=== PATIENT | male | born 1950 | race African-American/Black ===

== ENCOUNTER 2019-10-16 08:20 | Observation (INO) ==
--- NOTE | 2019-10-16 09:44 | DR.GENAD ---
HPI Time Seen Time Seen by Provider: 10/16/19 09:12 PCP Primary Care Physician: Toni OROPEZA Comment HPI Comment: HISTORY BELOW. HISTORY HTN AND DM AND COPD. LOWER ABCK AND LOWER EXTREMITIES PAIN, 09/27. DENIES CONTACT WITH COVID 19 PATIENT. HAVING DIARRHEA SINCE LAST NIGHT. Complaint/Symptoms Chief Complaint Doctors Comments: INCREASING SOB, WEAKNESS AND CHEST PAIN. BP ELEVATED IN ER. HISTORY HYPERTENSION. HAVE TAKEN HIS USUAL MORNING MEDICATIONS. CONCERN HE MAY HAVE COVID 19 INFECTION. Chief Complaint:: Patient states "I think I'm having symptoms of Covid." Patient denies any fever or sore throat. States that he is short of breath but that he has COPD and that it is not any worse than normal. He does report some chest pain but that it is "not bad". Denies any exposure to COVID. Patient reports symptoms of increased blood pressure. States that his blood pressure was 200/76. States that he is having tingling and cramps in his legs and that he started having diarrhea last night. He also reports lower back pain and feet pain that has been going on for awhile. COVID-19 Coronavirus risk:travel/contact w/high risk person: No Has patient experienced Coronavirus symptoms: Yes Coronavirus symptoms experienced: Fever and Shortness of Breath Source History Provided: Patient Mode of Arrival Mode of Arrival: Ambulatory Timing Onset of Chief Complaint: 10/15/19 Came on: Suddenly Duration Duration: Constant Duration: Days Severity Severity: Moderate Modifying Factors Worsens:: MOVEMENT Improves:: REST. Associated Signs and Symptoms Associated Signs and Symptoms: WEAKNESS. Other History Other History: COPD, HTN, DM. PMH PMH Past Medical History: Yes Past Medical History: COPD, Diabetes and Hypertension Past Surgical History: Yes Surgical History: Appendectomy and Other Family History History of Family Medical Conditions: Yes Family Medical History: Diabetes Mellitus and Cancer Social History Does any household member use tobacco: No Alcohol Use: None Do you use any recreational Drugs:: No Lives With: Alone Lives Where: Home Travel Risk Coronavirus risk:travel/contact w/high risk person: No Has patient experienced Coronavirus symptoms: Yes Coronavirus symptoms experienced: Fever and Shortness of Breath Infectious screening In the last 2 months have you had wt loss of >10#?: NO Have you had fever, night sweats or hemotysis?: No Have you traveled outside the country in the last 6 months?: No Isolation: Droplet ROS Review of Systems Constitutional: See HPI, Weakness and Fatigue; negative Fever Eyes: No Symptoms Reported and See HPI; negative Blurred Vision and Diplopia ENTM: No Symptoms Reported and See HPI; negative Ear Pain, Nose Discharge, Nose Congestion and Throat Pain Respiratoy: See HPI, Moist Cough and Short of Breath; negative Orthopnea Cardiovascular: See HPI and Chest Pain; negative Edema and Palpitations Gastrointestinal/Abdominal: See HPI and Diarrhea; negative Abdominal Pain and Vomiting Genitourinary: No Symptoms Reported and See HPI; negative Dysuria, Frequency and Hematuria Neurological: See HPI and Weakness; negative Headache and Dizziness Musculoskeletal: See HPI and Back Pain; negative Muscle Pain Integumentary: No Symptoms Reported and See HPI; negative Change in Color, Rash and Juandice Hematologic/Lymphatic: No Symptoms Reported and See HPI; negative Easy Bruising and Swollen Glands Endocrine: No Symptoms Reported and See HPI; negative Increased Thirst and Increased Urine Psychiatric: No Symptoms Reported and See HPI All Other Systems: Reviewed and Negative PE Vital Signs Vitals: Temperature 97.1 F Pulse Rate [Left Brachial] 96 Pulse Rate 65 Respiratory Rate 20 Blood Pressure [Left Arm] 177/77 Blood Pressure 167/76 O2 Sat by Pulse Oximetry 100 General Limitations: No Limitations General Appearance: Alert and In Distress Head Head Exam: Normal Inspection and Atraumatic Eyes Eye exam: Normal Appearance and PERRL; negative Scleral Icterus and Conjunctival Injection ENT ENT Exam: Normal Exam and Normal Oropharynx External Ear Exam: Normal External Inspection; negative Mastoid Tenderness TM/Canal Exam: Bilateral: Normal Nose Exam: Normal Nose Exam Mouth Exam: negative Normal Inspection Throat Exam: Normal Inspection; negative Tonsillar Erythema, Tonsillomegaly and Tonsillar Exudate Neck Neck Exam: Normal Inspection and Trachea Midline; negative Tenderness and Lymphadenopathy Chest Chest Inspection: Normal Inspection and Symmetric Chest Wall Rise; negative Tenderness Respiratory Respiratory Exam: Respiratory Distress; negative Accessory Muscle Use and Chest Wall Tenderness Respiratory Exam: Bilateral: Rhonchi and Lower: Rhonchi Cardiovascular Cardiovascular Exam: Regular Rate, Normal Rhythm and Normal Heart Sounds; negative Systolic Murmur and Diastolic Murmur Abdominal Exam Abdominal Exam: Normal Inspection, Normal Bowel Sounds and Soft; negative Tenderness Extremities Extremities Exam: Normal Inspection, Full ROM and Normal Capillary Refill; negative Tenderness, Edema and Calf Tenderness Back Back Exam: Normal Inspection; negative (R) CVA Tenderness and (L) CVA Tenderness Neurologic Neurological Exam: Alert and Oriented X3; negative Motor Sensory Deficit Psychiatric Psychiatric Exam: Normal Affect and Normal Mood Skin Skin Exam: Warm, Dry, Intact and Normal Color MDM Differential Diagnosis Differential Diagnosis: PNEUMONIA, CHF, HTN, GENERALIZED WEAKNESS, UTI. COURSE Treatment Treatment: SEE ORDERS. Consultation Consultation Comments: DISCUSSED PATIENT WITH DR. JOEL, HE WILL ADMIT PATIENT. Education/Counseling Education/Counseling: Patient Educated On: Diagnosis ROR Labs Reviewed Laboratory Results Reviewed?: Yes Result Diagrams: 10/18/19 04:45 10/18/19 04:45 Laboratory: WBC 9.8 X10^3/uL (3.6-10.0) 10/16/19 10:00 RBC 3.74 X10^6/uL (4.7-6.0) L 10/16/19 10:00 Hgb 11.0 g/dL (13.5-18.0) L 10/16/19 10:00 Hct 34.6 % (42.0-54.0) L 10/16/19 10:00 MCV 92.3 fL (80.0-100.0) 10/16/19 10:00 MCH 29.5 pg (27.0-34.0) 10/16/19 10:00 MCHC 31.9 g/dL (33.0-35.0) L 10/16/19 10:00 RDW 14.9 % (11.6-16.5) 10/16/19 10:00 Plt Count 104 X10^3/uL (150.0-450.0) L 10/16/19 10:00 Plt Count Comment Decreased (ADEQUATE) 10/16/19 10:00 MPV 12.2 fL (7.4-11.0) H 10/16/19 10:00 Neut % (Auto) 92.8 % (42.0-75.0) H 10/16/19 10:00 Lymph % (Auto) 5.7 % (21.0-51.0) L 10/16/19 10:00 Sharp % (Auto) 1.3 % (0.0-13.0) 10/16/19 10:00 Eos % (Auto) 0.0 % (0.9-2.9) L 10/16/19 10:00 Baso % (Auto) 0.2 % (0.2-1.0) 10/16/19 10:00 Neut # (Auto) 9.1 x10^3/uL (2.2-4.8) H 10/16/19 10:00 Lymph # (Auto) 0.6 X10^3/uL (1.3-2.9) L 10/16/19 10:00 Sharp # (Auto) 0.1 x10^3/uL (0.3-0.8) L 10/16/19 10:00 Eos # (Auto) 0.0 x10^3/uL (0.0-0.2) 10/16/19 10:00 Baso # (Auto) 0.0 X10^3/uL (0.0-0.1) 10/16/19 10:00 Absolute Nucleated RBC 0.1 /100WBC 10/16/19 10:00 Total Counted 100 10/16/19 10:00 Neutrophils % (Manual) 90 % (39-76) H 10/16/19 10:00 Band Neutrophils % 2 % (0-10) 10/16/19 10:00 Lymphocytes % (Manual) 8 % (13-43) L 10/16/19 10:00 Plt Morphology Comment Normal (NORMAL) 10/16/19 10:00 RBC Morphology Normal (NORMAL) 10/16/19 10:00 Sodium 136 mmol/L (136-145) 10/16/19 10:00 Corrected Sodium 137 mmol/L (136-145) 10/16/19 10:00 Potassium 4.4 mmol/L (3.5-5.1) 10/16/19 10:00 Chloride 99 mmol/L (98-107) 10/16/19 10:00 Carbon Dioxide 29.9 mmol/L (21-32) 10/16/19 10:00 BUN 64 mg/dL (7-18) H 10/16/19 10:00 Creatinine 2.02 mg/dL (0.70-1.30) H 10/16/19 10:00 Est GFR (MDRD) Af Amer 42 (>60) L 10/16/19 10:00 Est GFR (MDRD) Non-Af 35 (>60) L 10/16/19 10:00 Glucose 156 mg/dL (65-99) H 10/16/19 10:00 Calcium 9.5 mg/dL (8.5-10.1) 10/16/19 10:00 Corrected Calcium TNP 10/16/19 10:00 Ferritin 33 ng/mL (26-388) 10/16/19 10:00 Total Bilirubin 0.20 mg/dL (0.2-1.0) 10/16/19 10:00 AST 20 Units/L (15-37) 10/16/19 10:00 ALT 22 Units/L (12-78) 10/16/19 10:00 Alkaline Phosphatase 56 Units/L (46-116) 10/16/19 10:00 Lactate Dehydrogenase 204 Units/L (85-227) 10/16/19 10:00 C-Reactive Protein 5.50 mg/L (0-3.0) H 10/16/19 10:00 Total Protein 8.1 g/dL (6.4-8.2) 10/16/19 10:00 Albumin 4.2 g/dL (3.4-5.0) 10/16/19 10:00 Globulin 3.9 g/dL (2.5-4.5) 10/16/19 10:00 Albumin/Globulin Ratio 1.1 Ratio (1.1-2.1) 10/16/19 10:00 Specimen Type Random urine 10/16/19 10:49 Urine Color Pale yellow (YELLOW) 10/16/19 10:49 Urine Appearance Clear (CLEAR) 10/16/19 10:49 Urine pH 5.0 (5.0 - 8.0) 10/16/19 10:49 Ur Specific [place] 1.015 (1.000-1.030) 10/16/19 10:49 Urine Protein Negative (NEGATIVE) 10/16/19 10:49 Urine Glucose (UA) Negative (NEGATIVE) 10/16/19 10:49 Urine Ketones Negative (NEGATIVE) 10/16/19 10:49 Urine Occult Blood Negative (NEGATIVE) 10/16/19 10:49 Urine Nitrite Negative (NEGATIVE) 10/16/19 10:49 Urine Bilirubin Negative (NEGATIVE) 10/16/19 10:49 Urine Urobilinogen Normal (NORMAL) 10/16/19 10:49 Ur Leukocyte Esterase Negative (NEGATIVE) 10/16/19 10:49 RSV Nasal Swab Negative (NEGATIVE) 10/16/19 09:35 Influenza Type A Ag Negative-presumptive (NEGATIVE) 10/16/19 09:35 Influenza Type B Ag Negative-presumptive (NEGATIVE) 10/16/19 09:35 SARS-CoV-2 (PCR) Negative (NEGATIVE) 10/16/19 13:16 S. pyogenes (TEM-PCR) Not detected (NOT DETECT) 10/16/19 09:37 Other Results Comments: IMPRESSION Bilateral lung infiltrates could be due to atypical pneumonia but consideration should be given to pulmonary edema, also. Borderline CHF changes are seen. 1.3 cm left upper lobe lung nodule. Follow-up CT may be useful if this persists on follow-up chest x-rays. Mild constipation. XRAY XRAY Interpreted by: Radiologist (REPORT DISCUSSED WITH YOUR PATIENT.) and Self EKG Rate: 61 [place]: Normal Rhythm: NSR Block: None Hypertrophy: LVH ST: Inf, Lat, Ischemia and Infarct Opioid Opioid Risk Tool Age (Duran box if 16-45): No History of Preadolescent Sexual Abuse: No Total: 0 Total Score Risk Category: Low Risk Copyright: [facility] predicting aberrant behaviors Diagnosis Discharge Problem: Generalized weakness, History of renal insufficiency Pneumonia Qualifiers: Pneumonia type: due to unspecified organism Laterality: bilateral Lung location: lower lobe of lung Qualified Code(s): J18.9 - Pneumonia, unspecified organism Hypertension Qualifiers: Hypertension type: essential hypertension Qualified Code(s): I10 - Essential (primary) hypertension Dyspnea Qualifiers: Dyspnea type: dyspnea on exertion Qualified Code(s): R06.00 - Dyspnea, unspecified Instructions Instructions: Type 2 Diabetes Mellitus, Self Care, Adult, [id number] Chronic Obstructive Pulmonary Disease Exacerbation, [id number] Droplet Precautions, [id number] Hypertension, Ayrs-hp-Pebi Viral Respiratory Infection Community-Acquired Pneumonia, Adult Forms: Excuse From Work Precautions for COVID19 Patient Portal Social Distancing
[2019-10-16 10:07] LABS: RSV AG DETECTION NEGATIVE (NEGATIVE)
[2019-10-16 10:14] LABS: BASOPHILS % (AUTO) 0.2 % (0.2-1.0); HEMATOCRIT 34.6 % (42.0-54.0); LYMPHOCYTES # (AUTO) 0.6 X10^3/uL (1.3-2.9); LYMPHOCYTES % (AUTO) 5.7 % (21.0-51.0); MEAN CORPUSCULAR HEMOGLOBIN 29.5 pg (27.0-34.0); MEAN CORPUSCULAR HGB CONC 31.9 g/dL (33.0-35.0); MEAN CORPUSCULAR VOLUME 92.3 fL (80.0-100.0); MEAN PLATELET VOLUME 12.2 fL (7.4-11.0); MONOCYTES # (AUTO) 0.1 x10^3/uL (0.3-0.8); MONOCYTES % (AUTO) 1.3 % (0.0-13.0); NEUTROPHILS # (AUTO) 9.1 x10^3/uL (2.2-4.8); NEUTROPHILS % (AUTO) 92.8 % (42.0-75.0); PLATELET COUNT 104 X10^3/uL (150.0-450.0); RED BLOOD COUNT 3.74 X10^6/uL (4.7-6.0); RED CELL DISTRIBUTION WIDTH 14.9 % (11.6-16.5); WHITE BLOOD COUNT 9.8 X10^3/uL (3.6-10.0)
[2019-10-16 10:22] LABS: ALANINE AMINOTRANSFERASE 22 Units/L (12-78); ALBUMIN 4.2 g/dL (3.4-5.0); ALKALINE PHOSPHATASE 56 Units/L (46-116); ASPARTATE AMINO TRANSFERASE 20 Units/L (15-37); BLOOD UREA NITROGEN 64 mg/dL (7-18); CALCIUM 9.5 mg/dL (8.5-10.1); CARBON DIOXIDE 29.9 mmol/L (21-32); CHLORIDE 99 mmol/L (98-107); COR NA(FOR HYPERGLY) 137 mmol/L (136-145); CREATININE 2.02 mg/dL (0.70-1.30); LACTATE DEHYDROGENASE 204 Units/L (85-227); SODIUM 136 mmol/L (136-145); TOTAL PROTEIN 8.1 g/dL (6.4-8.2); eGFR NON BLACK RACES 35 (>60)
[2019-10-16 10:27] LABS: BAND NEUTROPHILS % 2 % (0-10); PLATELET MORPHOLOGY COMMENT NORMAL (NORMAL)
[2019-10-16 10:57] LABS: BILIRUBIN,URINE NEGATIVE (NEGATIVE); BLOOD/HEMOGLOBIN,URINE NEGATIVE (NEGATIVE); GLUCOSE, URINE NEGATIVE (NEGATIVE); KETONES,URINE NEGATIVE (NEGATIVE); LEUKOCYTE ESTERASE ,URINE NEGATIVE (NEGATIVE); NITRITES,URINE NEGATIVE (NEGATIVE); PROTEIN,URINE NEGATIVE (NEGATIVE); UROBILINOGEN,URINE NORMAL (NORMAL)
[2019-10-16 11:06] LABS: APPEARANCE,URINE CLEAR (CLEAR); COLOR,URINE PALE YELLOW (YELLOW)
[2019-10-16] MEDS ORDERED: CATAPRES TAB 0.1 MG ONE (13:07)
[2019-10-16] MEDS ORDERED: CATAPRES TAB 0.1 MG PO ONE (13:08)
--- NOTE | 2019-10-16 13:12 | RAD ---
HISTORYchest pain/ diarrhea, pt thinks he may have covidSTUDYACUTE ABDOMEN x-ray SERIES, one view chest and two view abdomenCOMPARISONNoneFINDINGSBilateral lung infiltrates are seen which could be due to atypical pneumonia. Pulmonary vasculature appears mildly prominent and heart is borderline enlarged. Pulmonary densities could possibly be pulmonary edema. In the left upper lobe there is a rounded density that is suspicious for a nodule measuring 1.3 cm. No pneumothorax or pleural effusion is seen.No free intraperitoneal air is seen. Mild right-sided constipation is seen. Mild vascular calcifications are seen in the pelvis.IMPRESSIONBilateral lung infiltrates could be due to atypical pneumonia but consideration should be given to pulmonary edema, also. Borderline CHF changes are seen.1.3 cm left upper lobe lung nodule. Follow-up CT may be useful if this persists on follow-up chest x-rays.Mild constipation.Electronically signed by: Yimi Dominguez (Oct 16, 2019 13:10:48)
[2019-10-16] MEDS ORDERED: ZOSYN VIAL 3.375 GRAMS IV ONE (13:59)
[2019-10-16] MEDS ORDERED: NS 1000 ML 1,000 ML ONE (14:00)
[2019-10-16] MEDS ORDERED: NS 100 ML IV 100 ML IV ONE (14:00)
[2019-10-16] MEDS ORDERED: ZOSYN VIAL 3.375 GRAMS 3.375 G in NS 100 ML IV + SPIKE MINIBAG* 100 ML IV SCH (14:42)
[2019-10-16] MEDS ORDERED: TUSSIONEX PENNKINETIC SUSP PO PRN (16:08)
[2019-10-16] MEDS ORDERED: PROVENTIL NEB TX 0.083% 2.5MG/ 3ML NEB PRN (16:17)
[2019-10-16 17:44] LABS: CKMB % 1.3 % (<4); CREATINE KINASE 87 Units/L (39-308); CREATINE KINASE MB 1.1 ng/mL (0-4.0); TROPONIN I < 0.02 ng/mL (0-1.5)
[2019-10-16] MEDS ORDERED: NS 250 ML IV 250 ML IV ONE (18:26)
[2019-10-16] MEDS ORDERED: ZITHROMAX INJ 500 MG VIAL IV ONE (18:27)
[2019-10-16] MEDS: ZITHROMAX INJ 500 MG VIAL 500 MG in NS 250 ML IV 250 ML IV SCH (18:30)
[2019-10-16 18:45] VITALS: BMI 28.0
[2019-10-16] MEDS ORDERED: NS 500 ML IV 500 ML IV PRN (18:53)
[2019-10-16] MEDS: ROBITUSSIN DM PO SCH ×2 (18:57→21:20)
[2019-10-16] MEDS: PULMICORT NEB TX 0.5 MG NEB SCH ×2 (21:00→23:48)
[2019-10-16] MEDS ORDERED: REFLEX: PROVENTIL NEB & PulmiCORT NEB~ NEB SCH (21:00)
[2019-10-16] MEDS ORDERED: NS 100 ML IV + SPIKE MINIBAG* 100 ML IV ONE (21:17)
[2019-10-16] MEDS: HumuLIN R SC PRN (21:20)
[2019-10-16] MEDS: ZOSYN VIAL 3.375 GRAMS 3.375 G in NS 100 ML IV 100 ML IV SCH (21:21)
[2019-10-16] MEDS: PROVENTIL NEB TX 0.083% 2.5MG/ 3ML NEB SCH (23:47)
[2019-10-17] MEDS ORDERED: NS 100 ML IV + SPIKE MINIBAG* 100 ML IV ONE (04:04)
[2019-10-17] MEDS: ZOSYN VIAL 3.375 GRAMS 3.375 G in NS 100 ML IV 100 ML IV SCH ×3 (05:06→21:45)
[2019-10-17 05:21] LABS: BASOPHILS % (AUTO) 0.2 % (0.2-1.0); EOSINOPHILS % (AUTO) 0.1 % (0.9-2.9); HEMATOCRIT 36.4 % (42.0-54.0); HEMOGLOBIN 11.5 g/dL (13.5-18.0); LYMPHOCYTES % (AUTO) 16.6 % (21.0-51.0); MEAN CORPUSCULAR HEMOGLOBIN 29.2 pg (27.0-34.0); MEAN CORPUSCULAR HGB CONC 31.7 g/dL (33.0-35.0); MEAN CORPUSCULAR VOLUME 92.1 fL (80.0-100.0); MEAN PLATELET VOLUME 12.2 fL (7.4-11.0); MONOCYTES # (AUTO) 0.8 x10^3/uL (0.3-0.8); MONOCYTES % (AUTO) 6.7 % (0.0-13.0); NEUTROPHILS # (AUTO) 9.2 x10^3/uL (2.2-4.8); NEUTROPHILS % (AUTO) 76.4 % (42.0-75.0); PLATELET COUNT 105 X10^3/uL (150.0-450.0); RED BLOOD COUNT 3.95 X10^6/uL (4.7-6.0); RED CELL DISTRIBUTION WIDTH 15.1 % (11.6-16.5); WHITE BLOOD COUNT 12.1 X10^3/uL (3.6-10.0)
[2019-10-17 05:45] LABS: ALANINE AMINOTRANSFERASE 23 Units/L (12-78); ALBUMIN 3.8 g/dL (3.4-5.0); ALKALINE PHOSPHATASE 55 Units/L (46-116); ASPARTATE AMINO TRANSFERASE 17 Units/L (15-37); BLOOD UREA NITROGEN 46 mg/dL (7-18); CALCIUM 9.4 mg/dL (8.5-10.1); CARBON DIOXIDE 28.7 mmol/L (21-32); CHLORIDE 104 mmol/L (98-107); CREATININE 1.51 mg/dL (0.70-1.30); SODIUM 141 mmol/L (136-145); TOTAL PROTEIN 7.6 g/dL (6.4-8.2); eGFR NON BLACK RACES 49 (>60)
[2019-10-17] MEDS: ROBITUSSIN DM PO SCH ×4 (08:57→21:45)
[2019-10-17] MEDS: VSL#3 PO SCH (08:57)
[2019-10-17] MEDS ORDERED: PRAVACHOL PO SCH (09:00)
[2019-10-17] MEDS: PROVENTIL NEB TX 0.083% 2.5MG/ 3ML NEB SCH ×2 (09:17→21:30)
[2019-10-17] MEDS: PULMICORT NEB TX 0.5 MG NEB SCH ×2 (09:17→21:30)
[2019-10-17] MEDS: ZITHROMAX INJ 500 MG VIAL 500 MG in NS 250 ML IV 250 ML IV SCH (10:00)
[2019-10-17] MEDS: APRESOLINE TAB 25 MG PO SCH ×2 (10:15→21:44)
[2019-10-17] MEDS: ISOSORBIDE MONONITRATE ER 24-HR PO SCH (10:15)
[2019-10-17] MEDS: PLAVIX PO SCH (10:15)
[2019-10-17] MEDS: LIPITOR TAB 40 MG PO SCH (11:15)
[2019-10-17] MEDS: LOVENOX INJ 40 MG SYR SC SCH (14:30)
[2019-10-17] MEDS: LASIX IVP SCH ×2 (15:00→17:48)
--- NOTE | 2019-10-17 17:36 | DR.H&P ---
H&P - History & Physical for Day of: H&P Date: 10/16/19 - Chief Complaint Chief Complaint: CHEST PRESSURE, SOB, CCC, DIARRHEA - History of Present Illness History of Present Illness: PT IS 68 BM ER ADMISSION AFTER PRESENTING WITH CO CCC, SOB, CHEST PRESSURE AND DIARRHEA. PT CONCERNED THAT HE HAS COVID 19. PT HAS PMH CRF, CHF, DM, RLS, OA, COPD. PT CXR IN ER REVEALING PNEUMONIA. PT RAPID COVID IN ER -. PT ADMITTED FOR TREATMENT AND EVALUATION OF ACUTE ILLNESS. - Past Medical History Past Medical History: Arthritis, CHF, COPD, Diabetes, GERD, Hypertension - Past Surgical History Surgical History: Appendectomy - Family History Family Medical History: Diabetes Mellitus, Coronary Artery Disease, Hypertension - Social History Does patient currently use any type of tobacco product: No Have you used tobacco products in the last 12 months: No Type of Tobacco Use: None Does any household member use tobacco: No Alcohol Use: None Drug Use: None Prescription drug monitoring program results: PDMP reviewed and no concerns identified - Medications Home Medications: amlodipine Allergy (Verified 10/17/19 10:10) CONTINUE taking the following medications acetaminophen [Tylenol Extra Strength] 500 mg PO HS 10/16/19 [History] albuterol sulfate 90 puff INHALATION DAILY PRN 10/16/19 [History] aspirin 81 mg PO PRN PRN 10/16/19 [History] atorvastatin 40 mg PO DAILY 10/16/19 [History] clopidogrel 75 mg PO DAILY 10/16/19 [History] furosemide 40 mg PO BID 10/16/19 [History] hydralazine 100 mg PO BID 10/16/19 [History] insulin glargine [Lantus U-100 Insulin] 30 unit SUBCUT HS 10/16/19 [History] insulin regular human [Humulin R Regular U-100 Insuln] 2 sliding scale dose SUBCUT PRN PRN 10/16/19 [History] isosorbide mononitrate 60 mg PO DAILY 10/16/19 [History] montelukast 10 mg PO DAILY 10/16/19 [History] nitroglycerin 0.4 mg SUBLINGUAL PRN PRN 10/16/19 [History] pravastatin 20 mg PO DAILY 10/16/19 [History] prednisone 50 mg PO DAILY 10/16/19 [History] pyridoxine (vitamin B6) [Vitamin B-6] 50 mg PO DAILY 10/16/19 [History] torsemide 20 mg PO DAILY 10/16/19 [History] - Review of Systems Constitutional: Fever, Chills, Weakness Eyes: No Symptoms Reported ENT: No Symptoms Reported Respiratory: Cough, Shortness of Breath, SOB with Excertion, Wheezing Cardiovascular: Chest Pain ("PRESSURE" "FULLNESS") Gastrointestinal: Nausea, Diarrhea Genitourinary: No Symptoms Reported Musculoskeletal: No Symptoms Reported Skin: No Symptoms Reported Neurological: No Symptoms Reported - Physical Exam Vital Signs: Temperature 97.8 F Pulse Rate [Left Brachial] 60 Pulse Rate 75 Respiratory Rate 23 Blood Pressure [Right Arm] 184/75 Blood Pressure [Left Arm] 177/77 Blood Pressure 158/73 O2 Sat by Pulse Oximetry 100 Oriented: Normal Eyes: Normal Ear: Normal Nose: Normal Throat: Normal Respiratory: RLL Diminished, LLL Diminished Cardiovascular: Normal. negative: Murmur : Normal Auscultation: Bowel Sounds: Normal Palpation: Normal Tenderness: Normal Skin: Decreased Turgur Musculoskeletal: Back:Thoracic, Back:Lumbar Mood Description: Calm Speech Pattern: Clear, Appropriate - Assessment/Plan (1) SOB (shortness of breath) Status: Acute Plan: ADMIT, PNEUMONIA PROTOCOL. ISOLATION, SEND OUT COVID19. CXR ON ADMISSION, STRICT I&OS, BP CONTROL. SERIAL CE AND EKG, SSI, BS CONTROL. VERIFY HOME MEDICATION, IV ATBX THERAPY, RESP CONSULT. SPUTUM CULTURE ON ADMISSION. (2) COPD (chronic obstructive pulmonary disease) Status: Acute (3) CRF (chronic renal failure) Status: Acute (4) Hypertension Status: Acute (5) Pneumonia Status: Acute (6) Diabetes Status: Acute - Allergies Allergies/Adverse Reactions: Allergies Allergy/AdvReac Type Severity Reaction Status Date / Time amlodipine Allergy Verified 10/17/19 10:10
[2019-10-17] MEDS: HumuLIN R SC PRN (17:40)
[2019-10-17 19:09] LABS: CREATINE KINASE 50 Units/L (39-308); CREATINE KINASE MB < 1.0 ng/mL (0-4.0); TROPONIN I < 0.02 ng/mL (0-1.5)
[2019-10-17] MEDS: MIRAPEX TAB 0.25 MG PO SCH (21:45)
[2019-10-18 01:27] LABS: CKMB % 2.3 % (<4); CREATINE KINASE 44 Units/L (39-308); CREATINE KINASE MB < 1.0 ng/mL (0-4.0); TROPONIN I < 0.02 ng/mL (0-1.5)
[2019-10-18 05:13] LABS: BASOPHILS % (AUTO) 0.2 % (0.2-1.0); EOSINOPHILS # (AUTO) 0.1 x10^3/uL (0.0-0.2); EOSINOPHILS % (AUTO) 0.7 % (0.9-2.9); HEMATOCRIT 34.6 % (42.0-54.0); LYMPHOCYTES # (AUTO) 1.9 X10^3/uL (1.3-2.9); LYMPHOCYTES % (AUTO) 22.1 % (21.0-51.0); MEAN CORPUSCULAR HEMOGLOBIN 29.5 pg (27.0-34.0); MEAN CORPUSCULAR HGB CONC 31.9 g/dL (33.0-35.0); MEAN CORPUSCULAR VOLUME 92.6 fL (80.0-100.0); MEAN PLATELET VOLUME 11.9 fL (7.4-11.0); MONOCYTES # (AUTO) 0.7 x10^3/uL (0.3-0.8); MONOCYTES % (AUTO) 8.2 % (0.0-13.0); NEUTROPHILS # (AUTO) 5.9 x10^3/uL (2.2-4.8); NEUTROPHILS % (AUTO) 68.8 % (42.0-75.0); PLATELET COUNT 95 X10^3/uL (150.0-450.0); RED BLOOD COUNT 3.74 X10^6/uL (4.7-6.0); RED CELL DISTRIBUTION WIDTH 14.9 % (11.6-16.5); WHITE BLOOD COUNT 8.5 X10^3/uL (3.6-10.0)
[2019-10-18] MEDS: ZOSYN VIAL 3.375 GRAMS 3.375 G in NS 100 ML IV 100 ML IV SCH ×3 (05:27→21:20)
[2019-10-18 05:37] LABS: ALANINE AMINOTRANSFERASE 25 Units/L (12-78); ALBUMIN 3.4 g/dL (3.4-5.0); ALKALINE PHOSPHATASE 46 Units/L (46-116); ASPARTATE AMINO TRANSFERASE 22 Units/L (15-37); BLOOD UREA NITROGEN 32 mg/dL (7-18); CALCIUM 8.8 mg/dL (8.5-10.1); CARBON DIOXIDE 34.1 mmol/L (21-32); CHLORIDE 103 mmol/L (98-107); COR NA(FOR HYPERGLY) 143 mmol/L (136-145); CREATININE 1.65 mg/dL (0.70-1.30); SODIUM 141 mmol/L (136-145); TOTAL PROTEIN 6.9 g/dL (6.4-8.2); eGFR NON BLACK RACES 44 (>60)
[2019-10-18] MEDS: APRESOLINE TAB 25 MG PO SCH ×2 (07:12→21:19)
--- NOTE | 2019-10-18 07:41 | RAD ---
HISTORYFollow-up pneumoniaSTUDYChest AP [id number] heart is mildly enlarged. No congestive heart failure is noted. Extensive pleural calcifications are present on the right. No definite right lung infiltrates are identified. Extensive pleural calcifications are present on the left. Increased density in the left lung base may be due to overlying pleural calcifications. The upper lung field is clear. The nodular density described on the prior chest x-ray in the left lung is not definitely visualized. Chest CT with contrast may be of further diagnostic value in evaluating the lung cancino particularly the left lung base.IMPRESSIONExtensive pleural calcification possibly accounting for the appearance of infiltrates on the prior examination.Left lung nodule described on the prior examination not definitely identifiedMild cardiomegaly without congestive heart failureElectronically signed by: AVTAR GAITAN (Oct 18, 2019 07:40:33)
[2019-10-18] MEDS: PULMICORT NEB TX 0.5 MG NEB SCH ×2 (08:10→21:30)
[2019-10-18] MEDS: PROVENTIL NEB TX 0.083% 2.5MG/ 3ML NEB SCH ×2 (08:10→21:30)
[2019-10-18] MEDS: LIPITOR TAB 40 MG PO SCH (08:40)
[2019-10-18] MEDS: ISOSORBIDE MONONITRATE ER 24-HR PO SCH (08:40)
[2019-10-18] MEDS: LOVENOX INJ 40 MG SYR SC SCH (08:41)
[2019-10-18] MEDS: ROBITUSSIN DM PO SCH ×4 (08:41→21:20)
[2019-10-18] MEDS: PLAVIX PO SCH (08:41)
[2019-10-18] MEDS: SINGULAIR TAB 10 MG PO SCH (08:42)
[2019-10-18] MEDS: VSL#3 PO SCH (08:42)
[2019-10-18] MEDS: ZITHROMAX INJ 500 MG VIAL 500 MG in NS 250 ML IV 250 ML IV SCH (08:42)
[2019-10-18 08:48] LABS: CKMB % 2.7 % (<4); CREATINE KINASE 37 Units/L (39-308); CREATINE KINASE MB < 1.0 ng/mL (0-4.0); TROPONIN I < 0.02 ng/mL (0-1.5)
[2019-10-18] MEDS: HumuLIN R SC PRN ×2 (12:55→17:30)
[2019-10-18] MEDS ORDERED: NORCO 5/325 MG TAB ONE (13:19)
[2019-10-18] MEDS: NORCO 5/325 MG TAB PO PRN ×2 (13:35→23:41)
[2019-10-18] MEDS: NS 1000 ML 1,000 ML IV SCH (14:47)
[2019-10-18] MEDS: APRESOLINE INJ 20 MG VIAL IVP PRN (17:48)
[2019-10-18 18:39] LABS: ABG BASE EXCESS 9.5 mmol/L (-2.0-2.0)
[2019-10-18 18:40] LABS: ABG ALLEN TEST POS; ABG HCO3 35.3 mmol/L (22-26)
[2019-10-18] MEDS: MIRAPEX TAB 0.25 MG PO SCH (21:19)
[2019-10-19] MEDS: APRESOLINE INJ 20 MG VIAL IVP PRN ×2 (03:30→17:28)
[2019-10-19] MEDS: ZOSYN VIAL 3.375 GRAMS 3.375 G in NS 100 ML IV 100 ML IV SCH ×3 (05:05→21:33)
[2019-10-19] MEDS: APRESOLINE TAB 25 MG PO SCH ×3 (05:05→20:19)
[2019-10-19 05:30] LABS: BASOPHILS % (AUTO) 0.4 % (0.2-1.0); EOSINOPHILS # (AUTO) 0.1 x10^3/uL (0.0-0.2); EOSINOPHILS % (AUTO) 1.4 % (0.9-2.9); HEMATOCRIT 35.9 % (42.0-54.0); HEMOGLOBIN 11.4 g/dL (13.5-18.0); LYMPHOCYTES # (AUTO) 2.3 X10^3/uL (1.3-2.9); LYMPHOCYTES % (AUTO) 25.1 % (21.0-51.0); MEAN CORPUSCULAR HEMOGLOBIN 29.5 pg (27.0-34.0); MEAN CORPUSCULAR HGB CONC 31.7 g/dL (33.0-35.0); MEAN CORPUSCULAR VOLUME 92.8 fL (80.0-100.0); MEAN PLATELET VOLUME 12.4 fL (7.4-11.0); MONOCYTES # (AUTO) 0.8 x10^3/uL (0.3-0.8); MONOCYTES % (AUTO) 8.4 % (0.0-13.0); NEUTROPHILS # (AUTO) 5.9 x10^3/uL (2.2-4.8); NEUTROPHILS % (AUTO) 64.7 % (42.0-75.0); PLATELET COUNT 104 X10^3/uL (150.0-450.0); RED BLOOD COUNT 3.87 X10^6/uL (4.7-6.0); RED CELL DISTRIBUTION WIDTH 14.9 % (11.6-16.5); WHITE BLOOD COUNT 9.1 X10^3/uL (3.6-10.0)
[2019-10-19 05:55] LABS: ALANINE AMINOTRANSFERASE 27 Units/L (12-78); ALBUMIN 3.5 g/dL (3.4-5.0); ALKALINE PHOSPHATASE 51 Units/L (46-116); ASPARTATE AMINO TRANSFERASE 20 Units/L (15-37); BLOOD UREA NITROGEN 17 mg/dL (7-18); CALCIUM 8.8 mg/dL (8.5-10.1); CARBON DIOXIDE 30.5 mmol/L (21-32); CREATININE 1.29 mg/dL (0.70-1.30); TOTAL PROTEIN 7.3 g/dL (6.4-8.2); eGFR NON BLACK RACES 59 (>60)
[2019-10-19 06:40] LABS: CHLORIDE 104 mmol/L (98-107); COR NA(FOR HYPERGLY) 143 mmol/L (136-145); SODIUM 142 mmol/L (136-145)
[2019-10-19] MEDS: ISOSORBIDE MONONITRATE ER 24-HR PO SCH (08:30)
[2019-10-19] MEDS: LOVENOX INJ 40 MG SYR SC SCH (08:31)
[2019-10-19] MEDS: LIPITOR TAB 40 MG PO SCH (08:31)
[2019-10-19] MEDS: PLAVIX PO SCH (08:31)
[2019-10-19] MEDS: ROBITUSSIN DM PO SCH ×4 (08:32→20:20)
[2019-10-19] MEDS: SINGULAIR TAB 10 MG PO SCH (08:32)
[2019-10-19] MEDS: VSL#3 PO SCH (08:33)
[2019-10-19] MEDS: NORCO 5/325 MG TAB PO PRN ×2 (08:52→20:20)
[2019-10-19] MEDS ORDERED: LASIX IVP ONE (09:29)
[2019-10-19] MEDS: ZITHROMAX INJ 500 MG VIAL 500 MG in NS 250 ML IV 250 ML IV SCH (09:30)
[2019-10-19] MEDS: PULMICORT NEB TX 0.5 MG NEB SCH ×2 (09:50→20:30)
[2019-10-19] MEDS: PROVENTIL NEB TX 0.083% 2.5MG/ 3ML NEB SCH ×2 (09:50→20:30)
[2019-10-19 09:54] LABS: ABG BASE EXCESS 4.7 mmol/L (-2.0-2.0)
[2019-10-19 09:55] LABS: ABG ALLEN TEST POS; ABG HCO3 31.2 mmol/L (22-26)
[2019-10-19] MEDS: HumuLIN R SC PRN (13:10)
[2019-10-19] MEDS: NS 1000 ML 1,000 ML IV SCH (14:35)
[2019-10-19] MEDS: COZAAR PO SCH (18:29)
[2019-10-19] MEDS: MIRAPEX TAB 0.25 MG PO SCH (20:19)
[2019-10-20 04:59] LABS: BASOPHILS % (AUTO) 0.6 % (0.2-1.0); EOSINOPHILS # (AUTO) 0.1 x10^3/uL (0.0-0.2); EOSINOPHILS % (AUTO) 1.6 % (0.9-2.9); HEMATOCRIT 33.6 % (42.0-54.0); HEMOGLOBIN 10.7 g/dL (13.5-18.0); LYMPHOCYTES # (AUTO) 1.8 X10^3/uL (1.3-2.9); LYMPHOCYTES % (AUTO) 22.5 % (21.0-51.0); MEAN CORPUSCULAR HEMOGLOBIN 29.4 pg (27.0-34.0); MEAN CORPUSCULAR HGB CONC 31.9 g/dL (33.0-35.0); MEAN CORPUSCULAR VOLUME 92.2 fL (80.0-100.0); MEAN PLATELET VOLUME 11.6 fL (7.4-11.0); MONOCYTES # (AUTO) 0.6 x10^3/uL (0.3-0.8); MONOCYTES % (AUTO) 7.5 % (0.0-13.0); NEUTROPHILS # (AUTO) 5.6 x10^3/uL (2.2-4.8); NEUTROPHILS % (AUTO) 67.8 % (42.0-75.0); PLATELET COUNT 95 X10^3/uL (150.0-450.0); RED BLOOD COUNT 3.64 X10^6/uL (4.7-6.0); RED CELL DISTRIBUTION WIDTH 14.8 % (11.6-16.5); WHITE BLOOD COUNT 8.2 X10^3/uL (3.6-10.0)
[2019-10-20 05:07] LABS: ALANINE AMINOTRANSFERASE 25 Units/L (12-78); ALBUMIN 3.1 g/dL (3.4-5.0); ALKALINE PHOSPHATASE 42 Units/L (46-116); ASPARTATE AMINO TRANSFERASE 18 Units/L (15-37); BLOOD UREA NITROGEN 17 mg/dL (7-18); CALCIUM 8.6 mg/dL (8.5-10.1); CARBON DIOXIDE 31.9 mmol/L (21-32); CHLORIDE 102 mmol/L (98-107); COR CA(FOR HYPOALB) 9.3 mg/dL (8.5-10.1); COR NA(FOR HYPERGLY) 140 mmol/L (136-145); CREATININE 1.32 mg/dL (0.70-1.30); SODIUM 140 mmol/L (136-145); TOTAL PROTEIN 6.4 g/dL (6.4-8.2); eGFR NON BLACK RACES 57 (>60)
[2019-10-20] MEDS: ZOSYN VIAL 3.375 GRAMS 3.375 G in NS 100 ML IV 100 ML IV SCH (06:03)
[2019-10-20] MEDS: APRESOLINE INJ 20 MG VIAL IVP PRN (06:35)
[2019-10-20] MEDS: NS 1000 ML 1,000 ML IV SCH (06:45)
[2019-10-20] MEDS: APRESOLINE TAB 25 MG PO SCH (09:07)
[2019-10-20] MEDS: ISOSORBIDE MONONITRATE ER 24-HR PO SCH (09:07)
[2019-10-20] MEDS: COZAAR PO SCH (09:07)
[2019-10-20] MEDS: LIPITOR TAB 40 MG PO SCH (09:08)
[2019-10-20] MEDS: LOVENOX INJ 40 MG SYR SC SCH (09:08)
[2019-10-20] MEDS: SINGULAIR TAB 10 MG PO SCH (09:09)
[2019-10-20] MEDS: ROBITUSSIN DM PO SCH (09:09)
[2019-10-20] MEDS: ZITHROMAX INJ 500 MG VIAL 500 MG in NS 250 ML IV 250 ML IV SCH (09:09)
[2019-10-20] MEDS: PLAVIX PO SCH (09:09)
[2019-10-20] MEDS: VSL#3 PO SCH (09:10)
[2019-10-20] MEDS ORDERED: MIRALAX POWDER (1 DOSE 17 G) PO ONE (10:34)
[2019-10-20] MEDS: PROVENTIL NEB TX 0.083% 2.5MG/ 3ML NEB SCH (10:38)
[2019-10-20] MEDS: PULMICORT NEB TX 0.5 MG NEB SCH (10:38)
[2019-10-20 11:29] VITALS: BP 155/67
== END 2019-10-20 12:05 | disposition home health service (06) ==
LOC: ER 08:30 → INTOOBSV 14:40 → ICU 14:40
PROVIDERS: ADMIT Internal Medicine; ATTEND Internal Medicine
CPT/HCPCS: 36415; 36600; 71010; 71045; 74022; 80053; 81003; 82550; 82553; 82728; 82803; 83605; 83615; 84484; 85025; 86140; 87040; 87070; 87205; 87400; 87420; 87635; 87651; 87804; 93005; 94640; 94669; 96365; 96374; 99284; A4222; G0378; J0360; J0456; J1650; J1815; J1940; J2543; J7030; J7050; J7613; J7626